=== PATIENT | female | born 1965 | race Two or more races ===

== ENCOUNTER → 2020-03-29 | Emergency (ER) | payer MEDICAID, OTHER ==
[~2020-03-29] VITALS: Ht 160 cm; Wt 79.4 kg
[~2020-03-29] MED LIST: KETOROLAC TROMETH 30 MG/ML 1ML VIAL IV ONE; METOCLOPRAMIDE HCL 5MG/ml INJ 2ml VIAL IV ONE; SODIUM CHLORIDE 0.9% 1,000 ML IV ONE
[2020-03-29 07:23] LABS: Urine Bacteria NONE SEEN /hpf (None Seen); Urine Blood 1+ /uL (Negative); Urine Mucus FEW (None Seen); Urine Specific Gravity 1.016 (1.001-1.035); Urine WBC 1 /hpf (0 - 5)
[2020-03-29 07:26] LABS: Basophils # (auto) 0 10 ^3/uL (0-0.2); Basophils % (auto) 0.5 % (0.0-2.0); Eosinophils # (auto) 0.1 10 ^3/uL (0-0.8); Eosinophils % (auto) 1.8 % (0.0-7.0); Hematocrit 41.3 % (36.0-46.0); Hemoglobin 13.8 g/dL (12.2-16.2); Lymphocytes # (auto) 1.9 10 ^3/uL (0.4-5.4); Lymphocytes % (auto) 30.9 % (10.0-50.0); Mean Corpuscular Hemoglobin 29.9 pg (28.0-32.0); Mean Corpuscular Hgb Conc. 33.5 g/dL (32.0-36.0); Mean Corpuscular Volume 89.4 fL (80.0-100.0); Monocytes # (auto) 0.4 10 ^3/uL (0-1.3); Neutrophils # (auto) 3.7 10 ^3/uL (1.6-8.6); Neutrophils % (auto) 59.8 % (37.0-80.0); Platelet Count (auto) 240 10^3/uL (140-450); Red Blood Cells 4.62 10^6/uL (4.0-5.20); Red Cell Distribution Width 13.9 % (11.8-14.3); White Blood Cell 6.1 10^3/uL (4.4-10.8)
[2020-03-29 07:41] LABS: Albumin 3.6 g/dL (3.4-5.0); Calcium 8.8 mg/dL (8.5-10.1); Potassium 3.9 mmol/L (3.5-5.1)
[2020-03-29 07:44] LABS: Bilirubin, Total 0.4 mg/dL (0.2-1.0); Total Protein 8.4 g/dL (6.4-8.2)
[2020-03-29 09:05] VITALS: BP 110/57
== END | disposition home or self-care (01) ==
LOC: ER 06:16
DX: M54.16 Radiculopathy, lumbar region (principal)
CPT/HCPCS: 36415; 80053; 81001; 85025; 96374; 96375; 99284; J1885; J2765; J7030

== ENCOUNTER 2024-05-03 20:45 | Emergency (ER) | payer MEDICAID ==
[~2024-05-03] VITALS: Ht 162.6 cm; Wt 88.0 kg
[2024-05-03 21:16] LABS: Urine Bacteria None Seen /hpf (None Seen); Urine WBC None Seen /hpf (0 - 5)
[2024-05-03 21:32] LABS: Urine Blood TRACE /uL (Negative); Urine Clarity Clear (Clear); Urine Color Colorless (Yellow); Urine Protein, UAD Negative (Negative); Urine Specific Gravity 1.005 (1.001-1.035); Urine Urobilinogen Normal (Negative)
[2024-05-03 21:49] LABS: Basophils # (auto) 0 10 ^3/uL (0-0.2); Basophils % (auto) 0.6 % (0.0-2.0); Eosinophils # (auto) 0.1 10 ^3/uL (0-0.8); Eosinophils % (auto) 1.5 % (0.0-7.0); Hematocrit 37.9 % (36.0-46.0); Hemoglobin 12.9 g/dL (12.2-16.2); Lymphocytes # (auto) 2.2 10 ^3/uL (0.4-5.4); Lymphocytes % (auto) 33.7 % (10.0-50.0); Mean Corpuscular Hgb Conc. 34.1 g/dL (32.0-36.0); Mean Corpuscular Volume 87.9 fL (80.0-100.0); Monocytes # (auto) 0.5 10 ^3/uL (0-1.3); Monocytes % (auto) 8.2 % (0.0-12.0); Neutrophils # (auto) 3.6 10 ^3/uL (1.6-8.6); Nucleated Red Blood Cells % 0.1 %; Platelet Count (auto) 228 10^3/uL (140-450); Red Blood Cells 4.31 10^6/uL (4.0-5.20); Red Cell Distribution Width 14.4 % (11.8-14.3); White Blood Cell 6.5 10^3/uL (4.4-10.8)
[2024-05-03 22:08] LABS: Chloride 107 mmol/L (98-107); Potassium 4.3 mmol/L (3.5-5.1); Sodium 136 mmol/L (136-145)
[2024-05-03 22:09] LABS: Anion Gap 4 (5-15); Carbon Dioxide 25 mmol/L (20-30)
[2024-05-03 22:10] LABS: Calcium 9.3 mg/dL (8.7-10.4)
[2024-05-03 22:14] LABS: Glucose 114 mg/dL (74-106)
[2024-05-03 22:15] LABS: BUN/Creatinine Ratio 16.2 (10.0-20.0); Blood Urea Nitrogen 16 mg/dL (9-23)
[2024-05-03] MEDS ORDERED: AMOX875T4 PO (22:34)
[2024-05-04] MEDS: cefTRIAXone SOD 1,000 MG VL IM ONE (02:04)
[2024-05-04 02:09] VITALS: BP 125/83; PULSE 56; RESP 20; TEMP 97.7; O2SAT 96
== END 2024-05-04 02:17 | disposition home or self-care (01) ==
LOC: ER 20:45
DX: N39.0 Urinary tract infection, site not specified (principal)
CPT/HCPCS: 36415; 74176; 80048; 81001; 85025; 96372; 99285; J0696